=== PATIENT | female | born 2000 | race Caucasian/White ===

== ENCOUNTER 2025-07-20 18:20 | Emergency (ER) | payer SELFPAY ==
[2025-07-20] VITALS (9 sets, daily range): BP systolic 97–151; BP diastolic 70–83; PULSE 102–108; RESP 16–20; TEMP 36.3; O2SAT 82–100
--- NOTE | ~2025-07-20 | CT_ITS ---
CT brain wo con HISTORY:headache COMPARISON: None. TECHNIQUE: Axial images were obtained of the head without intravenous contrast. FINDINGS: No acute intracranial hemorrhage, mass effect or midline shift. No extra-axial fluid collections. The calvarium is intact. Visualized paranasal sinuses and mastoid air cells are clear. IMPRESSION: No acute intracranial hemorrhage or extra axial fluid collections. All CT scans at this facility are performed using low dose modulation techniques as appropriate to perform exam including the following: automated exposure control; use of iterative reconstruction technique; adjustment of the mA and/or kV according to patient size (this includes techniques or standardized protocols for targeted exams where dose is matched to indication/reason for exam). Reviewed, dictated and finalized at location S. [facility] ROOM SPECIALIST IMPRESSION: No acute intracranial hemorrhage or extra axial fluid collections. All CT scans at this facility are performed using low dose modulation techniqu es as appropriate to perform exam including the following: automated exposure c ontrol; use of iterative reconstruction technique; adjustment of the mA and/or kV according to patient size (this includes techniques or standardized protocol s for targeted exams where dose is matched to indication/reason for exam).
--- OUTSIDE RECORDS SUMMARY | 2025-07-20 18:22 | XMS_ITS | Clinical Summary ---
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 Gender Identity Not on file Sexual Orientation Not on file Plan of Treatment Health Maintenance Due Date Last Done Comments Hepatitis C Virus (HCV) Screening 1998 TdaP Immunization 1998 Human Papillomavirus (HPV) Immunization (1 - 3-dose series) 2013 Hepatitis B Immunization (1 of 3 - 19+ 3-dose series) 2017 Influenza Immunization (#1) 2025 SARS-COV-2 Immunization ( season) 2025 Respiratory Syncytial Virus (RSV) Immunization (Adult) (1 - 1-dose 75+ series) 2073 Meningococcal Immunization (ACWY) Aged Out No longer eligible based on patient's age to complete this topic Pneumococcal Immunization Combined Aged Out No longer eligible based on patient's age to complete this topic Rotavirus Immunization Aged Out No lo nger eligible based on patient's age to complete this topic
[2025-07-20] MEDS: PROCHLORPERAZINE EDISYLATE 10 MG/2 ML VIAL IV PUSH (18:57)
--- NOTE | 2025-07-20 19:00 | ED_ITS ---
HPI - General Adult General Chief complaint: Headache Stated complaint: headache Time Seen by Provider: 07/20/25 18:34 History of Present Illness HPI narrative: 24-year-old female presents to the emergency department for evaluation for intermittent headache. Patient does have history of recurrent headache and did have follow-up with ophthalmology on July 09 and was diagnosed with papilledema. Patient was encouraged to have outpatient follow-up. Patient's primary care physician is helping to establish outpatient follow-up with [facility] or [facility]. Patient has not yet had any outpatient follow- up. Patient states since Saturday she has had worsening headache and blurred vision. Related Data Allergies Allergy/AdvReac Type Severity Reaction Status Date / Time amoxicillin Allergy Intermediate Hives Verified 07/20/25 18:21 Review of Systems 2 Review of Systems: All systems reviewed & are unremarkable except as noted in HPI and below Exam 2 Narrative: APPEARANCE: Uncomfortable appearing at initial evaluation improved at treatment HEAD: normocephalic, atraumatic. EYES: PERRLA/EOMI, conjunctivae clear. NOSE: Normal no drainage EARS:TMS clear with good light reflex. THROAT: Pharynx clear, no exudate. NECK: Supple. No adenopathy, no masses. RESPIRATORY: Airway patent, respirations nonlabored. Clear to auscultation bilaterally, no rales, rhonchi, wheezing. CARDIOVASCULAR: Regular rate and rhythm without murmurs rubs or gallops. ABDOMINAL: Soft, nontender, nondistended, normal bowel sounds MUSCULOSKELETAL: Moves all extremities. Strength/ROM intact, No edema, No calf tenderness. NEURO: Alert. Cranial nerves II through XII intact. Good gait. Good coordination SKIN: Warm, dry. Normal Color Course Vital Signs Vital signs: Vital Signs Temperature 97.4 F L 07/20/25 18:27 Pulse Rate 102 H 07/20/25 18:27 Respiratory Rate 20 07/20/25 18:27 Blood Pressure 151/79 H 07/20/25 18:27 Pulse Oximetry 100 07/20/25 18:27 Oxygen Delivery Room Air 07/20/25 18:27 Temperature 97.4 F L 07/20/25 18:27 Pulse Rate 108 H 07/20/25 18:36 Respiratory Rate 16 07/20/25 18:36 Blood Pressure 107/70 07/20/25 20:30 Pulse Oximetry 98 07/20/25 20:45 Oxygen Delivery Room Air 07/20/25 18:27 Medical Decision Making MDM Narrative Medical decision making narrative: 24-year-old female presents to the emergency department for evaluation for headache and blurred vision. Patient does have an outpatient diagnosis of papilledema and is in the process getting follow-up with [facility]. Patient states since Saturday she has had worsening headache symptoms. Patient is currently afebrile but does have a leukocytosis 12.3 hemoglobin of 12.9. INR 1.0. Patient has no acute abnormalities on her CMP. Head CT was negative for acute intracranial abnormality. Patient was treated with IV Compazine, IV Benadryl, IV Toradol, magnesium sulfate and IV dexamethasone. At time of re-evaluation patient states her headache has resolved and patient denies any blurred vision. Patient was updated on the results of her workup patient was strongly encouraged to continue to seek outpatient follow-up with the tertiary care centers. Patient was also encouraged to follow up with primary care physician and have an outpatient MRI. Differential Diagnosis Differential Diagnosis: migraine, headache, papilledema Vital Signs Vital Signs: Vital Signs Temperature 97.4 F L 07/20/25 18:27 Pulse Rate 102 H 07/20/25 18:27 Respiratory Rate 20 07/20/25 18:27 Blood Pressure 151/79 H 07/20/25 18:27 Pulse Oximetry 100 07/20/25 18:27 Oxygen Delivery Room Air 07/20/25 18:27 Temperature 97.4 F L 07/20/25 18:27 Pulse Rate 108 H 07/20/25 18:36 Respiratory Rate 16 07/20/25 18:36 Blood Pressure 107/70 07/20/25 20:30 Pulse Oximetry 98 07/20/25 20:45 Oxygen Delivery Room Air 07/20/25 18:27 Lab Data Lab results reviewed: Yes I reviewed the patient's lab results. 07/20/25 19:02 07/20/25 19:02 Labs: Lab Results 07/20/25 Range/Units 19:02 WBC 12.3 H (4.5-10.0) K/mm3 RBC 4.40 (4.2-5.4) M/mm3 Hgb 12.9 (12.0-15.0) g/dL Hct 39.4 (37.0-47.0) % MCV 89.5 (80-100) fl MCH 29.3 (26-34) pg MCHC 32.7 (32-36) g/dl RDW 12.9 (11.5-14.5) % Plt Count 363 (150-375) k/mm3 MPV 11.0 H (7.4-10.4) fl Immature Gran % (Auto) 0.3 (0-0.5) % Neut % (Auto) 73.9 H (45.5-73.1) % Lymph % (Auto) 19.6 (18.3-44.2) % [place] % (Auto) 4.7 (2.6-8.5) % Eos % (Auto) 1.2 (0-4.4) % Baso % (Auto) 0.3 (0.2-1.2) % Lymph # (Auto) 2.41 (0.9-3.2) K/mm3 [place] # (Auto) 0.6 (0.1-0.6) K/mm3 Eos # (Auto) 0.2 (0-0.3) K/mm3 Baso # (Auto) 0.0 (0.0-0.1) K/mm3 Abs Immat Gran (auto) 0.04 H (0.00-0.031) K/mm3 Absolute Neuts (auto) 9.1 H (1.3-6.7) K/mm3 Absolute Nucleated RBC 0.000 (0.0-0.012) K/mm3 Nucleated RBC % 0.0 (0.0-0.2) % PT 13.1 (11.1-14.7) Seconds INR 1.0 APTT 26.6 (22.3-36.8) Seconds Sodium 139 (137-145) mmol/L Potassium 4.1 (3.4-5.0) mmol/L Chloride 105 (98-107) mmol/L Carbon Dioxide 26 (22-30) mmol/L Anion Gap 8 (4-12) mmol/L BUN 14 (7-17) mg/dL Creatinine 0.94 (0.7-1.0) mg/dL Estim Creat Clear Calc 87 ml/min Estimated GFR > 60 (59 - ) Glucose 114 H (65-110) mg/dL Calcium 9.2 (8.4-10.2) mg/dL Total Bilirubin 0.3 (0.2-1.3) mg/dL AST 24 (14-36) U/L ALT 26 (6-35) U/L Alkaline Phosphatase 99 (38-126) U/L Total Protein 7.4 (6.3-8.2) g/dL Albumin 4.3 (3.5-5.1) g/dL Imaging Data Radiologist's impression: Impressions Head CT 07/20/25 20:03 IMPRESSION: No acute intracranial hemorrhage or extra axial fluid collections. All CT scans at this facility are performed using low dose modulation techniques as appropriate to perform exam including the following: automated exposure control; use of iterative reconstruction technique; adjustment of the mA and/or kV according to patient size (this includes techniques or standardized protocols for targeted exams where dose is matched to indication/reason for exam). Discharge Plan Discharge Clinical Impression: Headache Patient Disposition: Home Condition: Stable Instructions: Antibiotic Form, Acute Headache (ED) Additional Instructions: Continue have close outpatient follow-up with your primary care physician and have an outpatient MRI. Continue to have follow-up with [facility] and [facility]. If you have any worsening symptoms then please call or return to the emergency department. Patient Language: Spanish Follow-up/Referrals: Marcos,DEENA Garibay [Primary Care Provider, Unknown]
[2025-07-20 19:13] LABS: Hematocrit 39.4 % (37.0-47.0); Hemoglobin 12.9 g/dL (12.0-15.0); Immature Granulocyte Percent A 0.3 % (0-0.5); Lymphocytes Absolute Auto 2.41 K/mm3 (0.9-3.2); Mean Corpuscular HGB Conc 32.7 g/dl (32-36); Mean Corpuscular Hemoglobin 29.3 pg (26-34); Mean Corpuscular Volume 89.5 fl (80-100); Nucleated Red Blood Cells Absolute Auto 0.000 K/mm3 (0.0-0.012); Nucleated Red Blood Cells Perc 0.0 % (0.0-0.2); Platelet Count Result 363 k/mm3 (150-375); Red Blood Count 4.40 M/mm3 (4.2-5.4); White Blood Count 12.3 K/mm3 (4.5-10.0)
[2025-07-20 19:18] LABS: INR 1.0; Prothrombin Time 13.1 Seconds (11.1-14.7)
[2025-07-20 19:19] LABS: Alanine Aminotransferase 26 U/L (6-35); Albumin Level 4.3 g/dL (3.5-5.1); Alkaline Phosphatase 99 U/L (38-126); Anion Gap 8 mmol/L (4-12); Aspartate Amino Transferase 24 U/L (14-36); Bilirubin,Total 0.3 mg/dL (0.2-1.3); Blood Urea Nitrogen 14 mg/dL (7-17); Calcium 9.2 mg/dL (8.4-10.2); Carbon Dioxide 26 mmol/L (22-30); Chloride 105 mmol/L (98-107); Estimated CRCL calculation 87 ml/min; Estimated Glomerular Filt Rate > 60; Glucose 114 mg/dL (65-110); Partial Thromboplastin Time 26.6 Seconds (22.3-36.8); Potassium 4.1 mmol/L (3.4-5.0); Sodium 139 mmol/L (137-145); Total Protein 7.4 g/dL (6.3-8.2)
[2025-07-20] MEDS: dexAMETHasone SOD PHOS INJ 10 MG/ML 1 ML VIAL IV PUSH (19:47)
[2025-07-20] MEDS: MAGNESIUM SULF 1 GM/D5W 100 ML 1 GM/100 ML BAG IVPB (20:23)
[2025-07-20] MEDS: KETOROLAC 30 MG/ML VIAL (*BKC) IV PUSH (20:24)
== END 2025-07-20 21:00 | disposition home or self-care (01) ==
PROVIDERS: Emergency Provider Emergency Medicine; PCP Physician Assistant
DX: R51.9 Headache, unspecified (principal)
CPT/HCPCS: 36415; 70450; 80053; 85025; 85610; 85730; 96365; 96375; 99284; J0780; J1100; J1200; J1885; J3475